=== PATIENT | female | born 1970 | race Caucasian/White ===

== ENCOUNTER 2019-11-02 12:33 | Outpatient (CLI) | payer OTHER, SELFPAY ==
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
== END 2019-11-02 12:34 | disposition home or self-care (01) ==
LOC: ANHIMG 12:41
PROVIDERS: PCP Physician Assistant Medical; Visit Provider Nurse Practitioner Family
DX: M54.5 Low back pain (principal); M54.2 Cervicalgia; R42 Dizziness and giddiness; R51 Headache; V89.2XXS Person injured in unspecified motor-vehicle accident, traffic, sequela; M12.88 Other specific arthropathies, not elsewhere classified, other specified site
CPT/HCPCS: 70450; 72040; 72100

== ENCOUNTER 2019-12-14 13:23 | Outpatient (CLI) | payer OTHER, SELFPAY ==
--- NOTE | ~2019-12-14 | CT_ITS ---
EXAMINATION: CT chest wo con DATE: 12/14/2019 13:41 INDICATION: Solitary pulmonary nodule TECHNIQUE: Computed tomography (CT) of the chest was performed without intravenous contrast. The dose -length product (DLP) was 55.53 mGy-cm. Automated exposure control and iterative reconstruction techn ique were employed. COMPARISON: 11/30/2018 FINDINGS: A stable nodule of the minor fissure likely reflects a fissural lymph node. No suspicious p ulmonary nodule is identified. The lungs are free of acute opacities. There is no pleural effusion or pneumothorax. No pathologically enlarged thoracic lymph nodes are identified. The heart size is norm al. Right thyroid calcification is unchanged. The gallbladder is surgically absent. A T8 superior end plate compression fracture with 1/5 loss of vertebral body height is new since the comparison examina tion. IMPRESSION: 1. No suspicious pulmonary nodules. 2. T8 compression fracture, new since the comparison CT. Reviewed, dictated and finalized at location A.
== END 2019-12-14 13:24 ==
PROVIDERS: Visit Provider Internal Medicine Critical Care Medicine
DX: R91.1 Solitary pulmonary nodule (principal); M48.54XA Collapsed vertebra, not elsewhere classified, thoracic region, initial encounter for fracture
CPT/HCPCS: 71250

== ENCOUNTER 2020-01-31 08:49 | Outpatient (CLI) | payer OTHER, SELFPAY ==
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
[2020-01-31 10:57] LABS: Estimated Glomerular Filt Rate > 60
== END 2020-01-31 08:50 | disposition home or self-care (01) ==
PROVIDERS: PCP Family Medicine; Visit Provider Physician Assistant Medical
DX: G44.309 Post-traumatic headache, unspecified, not intractable (principal)
CPT/HCPCS: 36415; 70553; A9577

== ENCOUNTER 2020-05-07 08:21 | Outpatient (CLI) | payer OTHER, SELFPAY ==
--- NOTE | ~2020-05-07 | MM_ITS ---
EXAMINATION: MM screening coreen BI w lizabeth HISTORY: Screening TECHNIQUE: Craniocaudal and mediolateral oblique 3-D tomosynthesis images were obtained and synthetic 2-D images were generated. CAD analysis was submitted and interpreted. COMPARISON: Comparison to multiple prior studies sequentially, with oldest reviewed study dated 08/28. BREAST PARENCHYMAL COMPOSITION: There are scattered areas of fibroglandular density. FINDINGS: There is no evidence of suspicious mass, calcification, or architectural distortion to sugg est malignancy in either breast. There has been no suspicious interval change. IMPRESSION: 1. No mammographic evidence of malignancy. 2. Recommend routine screening mammography in one year. BI-RADS Category 1: Negative Reviewed, dictated and finalized at location A.
== END 2020-05-07 08:22 | disposition home or self-care (01) ==
LOC: ANHIMG 08:22
PROVIDERS: PCP Family Medicine; Visit Provider Nurse Practitioner
DX: Z12.31 Encounter for screening mammogram for malignant neoplasm of breast (principal)
CPT/HCPCS: 77063; 77067

== ENCOUNTER → 2020-06-11 14:01 | Outpatient (CLI) | payer OTHER, SELFPAY ==
--- NOTE | ~2020-06-11 | US_ITS ---
EXAMINATION: US transvaginal DATE: 06/11/2020 14:38 INDICATION: Right lower quadrant pain. Fibroids. Comparison:Ultrasound dated 11/04/2017 TECHNIQUE: Multiple endovaginal sonographic images of the pelvis performed. FINDINGS: The uterus measures 7.8 x 5.2 x 5.1 cm. There are multiple uterine fibroids, largest on the left measuring 3.8 x 3.2 x 2.2 cm and at the fundus measuring 3.83 x 3 x 3 cm. The endometrial compl ex measures 5.5 mm. The right ovary is not visualized. The left ovary measures 1.7 x 0.8 x 1.1 cm There is no free fluid in the pelvis. There are no abnormal masses seen on either side. IMPRESSION: 1. Thickened endomtrial complex. The differential diagnosis includes endometrial hyperplasia, polyp a nd carcinoma. Biopsy is recommended. 2: Multiple uterine fibroids. Reviewed, dictated and finalized at location B. IMPRESSION: 1. Thickened endomtrial complex. The differential diagnosis includes endometria l hyperplasia, polyp and carcinoma. Biopsy is recommended. 2: Multiple uterine fibroids.
== END ==
PROVIDERS: PCP Physician Assistant Medical; Visit Provider Obstetrics & Gynecology Gynecology
DX: D25.9 Leiomyoma of uterus, unspecified (principal)
CPT/HCPCS: 76830

== ENCOUNTER 2020-06-28 01:12 | Outpatient (CLI) | payer OTHER, SELFPAY ==
[2020-06-28 16:30] LABS: SARS-CoV-2 RNA PCR Negative
== END 2020-06-28 01:13 | disposition home or self-care (01) ==
LOC: ANHCOVIDDT 01:12
PROVIDERS: PCP Physician Assistant Medical; Visit Provider Obstetrics & Gynecology Gynecology
DX: Z01.812 Encounter for preprocedural laboratory examination (principal); Z20.828 Contact with and (suspected) exposure to other viral communicable diseases
CPT/HCPCS: 87635; C9803; U0003

== ENCOUNTER 2020-07-01 02:39 | Day surgery (SDC) | payer OTHER, SELFPAY ==
[2020-06-19 09:15] VITALS: BMI 25.0
--- NOTE | 2020-07-01 07:36 | PM.HPGS ---
History of Present Illness History of Present Illness Consent: Risks, benefits, and alternatives have been discussed and questions answered. Patient agrees to proceed with procedure. Chief complaint: Thickened Endometrium Narrative: Rosalia Mckeon is a 50 year old female who had pelvic u/s for RLQ pain. Patient with menopause 2017. Pelvic u/s showed thickened endometrium. Patient denies bleeding. She is getting bioidential pellets and was told to stop her progesterone cream for a week and did not have bleeding after that either. Pain persisted as well. U/s did show multiple known fibroids with largest being 3.5 cm. Recommend to further evaluate with hysteroscopy and D&C. Risks of infection, bleeding, perforation, and possible pathology reviewed. Discussed that if fibroids are in cavity, would not plan to remove them unless it blocks the view of the remaining endometrium. Patient questions answered and she agrees to proceed. [facility] Past Medical History Medical History (Updated 07/01/20 @ 07:46 by Shama Petersen MD) Anxiety Asthma-COPD overlap syndrome Depression History of hysteroscopy 2010 Hypothyroid Nodule of right lung (normal spontaneous vaginal delivery) stillborn at 36 weeks Raynaud disease Sinusitis Sjogrens syndrome Skin cancer age 6 required several plastic surgeries Spontaneous x 2 D&C x 1 Surgical History Surgical History (Updated 07/01/20 @ 07:44 by Shama Petersen MD) S/P breast biopsy S/P laparoscopic cholecystectomy Social History Social History Smoking status: Never smoker Alcohol intake: current Drinks per week: 1 Spiritual care concerns: No Meds Home Medications and Allergies Home Medications Medication Instructions Recorded Confirmed Type hydroxychloroquine 200 mg tablet 200 mg PO BID 11/30/19 06/19/20 History ipratropium bromide 0.02 % 2.5 ml INHALATION Q6H PRN 30 Days 11/30/19 06/19/20 Rx solution for inhalation #150 ml thyroid (pork) 15 mg tablet 9.5 mg PO BID tablet 11/30/19 06/19/20 History topiramate 25 mg tablet 25 mg PO BID 11/30/19 06/19/20 History cevimeline 30 mg capsule 1 cap PO TID 01/17/20 06/19/20 History liothyronine 25 mcg tablet 12.5 mcg PO BID tablet 01/17/20 06/19/20 History cetirizine 10 mg tablet 10 mg PO DAILY #30 tablet 02/15/20 06/19/20 Rx fluticasone propionate 50 1 spray NASAL DAILY #18.2 ml 03/12/20 06/19/20 Rx mcg/actuation nasal spray,suspension montelukast 10 mg tablet 10 mg PO DAILY #90 tablet 03/25/20 06/19/20 Rx dextroamphetamine-amphetamine ER 10 mg PO DAILY #30 cap 06/11/20 06/19/20 Rx 10 mg 24hr capsule,extend release meloxicam 15 mg tablet 15 mg PO DAILY #30 tablet 06/11/20 06/19/20 Rx albuterol sulfate 90 mcg/actuation 1 inhalation INHALATION Q4-6H PRN 06/13/20 06/19/20 Rx aerosol inhaler #8.5 gm fluticasone furoate 200 1 inhalation INHALATION DAILY #60 06/13/20 06/19/20 Rx mcg-vilanterol 25 mcg/dose each inhalation powder azelastine 137 mcg NASAL DAILY 06/19/20 06/19/20 History ergocalciferol (vitamin D2) 1,250 mcg PO WEEKLY 06/19/20 06/19/20 History [Vitamin D2] omega 8-zsx-ofl-fish oil [Fish Oil] 1 cap PO DAILY 06/19/20 06/19/20 History turmeric 1 cap PO DAILY 06/19/20 06/19/20 History Allergies Allergy/AdvReac Type Severity Reaction Status Date / Time Sulfa (Sulfonamide Allergy Unknown SEVERE Verified 06/19/20 09:16 Antibiotics) HIVES azithromycin AdvReac Unknown SEVERE Verified 06/19/20 09:16 DIARRHEA gluten AdvReac FOLLOWS Verified 06/19/20 09:41 [facility] PROTOCOL lactase [From Dairy Aid] AdvReac FOLLOWS Verified 06/19/20 09:41 [facility] PROTOCOL Exam Const: General: no acute distress Resp: Auscultation: clear to auscultation bilaterally Cardio: Rate: regular rate Rhythm: regular rhythm GI: GI Palp: Yes Soft to palpation and No Tenderness to palpation present (GI) : Speculum Exam - Vagina:
--- NOTE | 2020-07-01 07:48 | WPDHPUPDATE1 ---
History and Physical Update Update Date/Time: 07/01/20 07:48 History and Physical has been reviewed, including an updated exam of the patient. There are NO changes in the patient's condition. Risks, benefits, and alternatives have been discussed and questions answered. Patient agrees to proceed with procedure.
[2020-07-01 07:58] VITALS: BP 111/51; PULSE 89; RESP 20; TEMP 37.4; O2SAT 100
[2020-07-01] MEDS: ACETAMINOPHEN 500 MG TABLET 1000 MG PO ×2 (08:04→08:10)
[2020-07-01] MEDS: LACTATED RINGERS 1,000 ML 30 ML IV CONT (08:20)
--- NOTE | 2020-07-01 08:42 | WPDANESEPPF ---
Anes - Initial Pre Proc Eval Procedure: Operation Date: 07/01/20 09:15 Proposed Procedures p Hysteroscopy Dilation and Curettage - Shama Petersen MD Date/Time: 07/01/20 08:42 Surgeon: Shama Petersen MD Pre Op Diagnosis: Thickened Endometrium Patient Data Age: 50 Gender: F Height: 1.7 m Weight: 72.57 kg Allergies Allergy/AdvReac Type Severity Reaction Status Date / Time Sulfa (Sulfonamide Allergy Severe SEVERE Verified 07/01/20 08:19 Antibiotics) HIVES azithromycin AdvReac Severe SEVERE Verified 07/01/20 08:19 DIARRHEA gluten AdvReac Unknown FOLLOWS Verified 07/01/20 08:19 AIP PROTOCOL lactase [From Dairy Aid] AdvReac Unknown FOLLOWS Verified 07/01/20 08:19 AIP PROTOCOL Home Medications Medication Instructions Recorded Confirmed Type hydroxychloroquine 200 mg tablet 200 mg PO BID 11/30/19 06/19/20 History ipratropium bromide 0.02 % 2.5 ml INHALATION Q6H PRN 30 Days 11/30/19 06/19/20 Rx solution for inhalation #150 ml thyroid (pork) 15 mg tablet 9.5 mg PO BID tablet 11/30/19 06/19/20 History topiramate 25 mg tablet 25 mg PO BID 11/30/19 06/19/20 History cevimeline 30 mg capsule 1 cap PO TID 01/17/20 06/19/20 History liothyronine 25 mcg tablet 12.5 mcg PO BID tablet 01/17/20 06/19/20 History cetirizine 10 mg tablet 10 mg PO DAILY #30 tablet 02/15/20 06/19/20 Rx fluticasone propionate 50 1 spray NASAL DAILY #18.2 ml 03/12/20 06/19/20 Rx mcg/actuation nasal spray,suspension montelukast 10 mg tablet 10 mg PO DAILY #90 tablet 03/25/20 06/19/20 Rx dextroamphetamine-amphetamine ER 10 mg PO DAILY #30 cap 06/11/20 06/19/20 Rx 10 mg 24hr capsule,extend release meloxicam 15 mg tablet 15 mg PO DAILY #30 tablet 06/11/20 06/19/20 Rx albuterol sulfate 90 mcg/actuation 1 inhalation INHALATION Q4-6H PRN 06/13/20 06/19/20 Rx aerosol inhaler #8.5 gm fluticasone furoate 200 1 inhalation INHALATION DAILY #60 06/13/20 06/19/20 Rx mcg-vilanterol 25 mcg/dose each inhalation powder azelastine 137 mcg NASAL DAILY 06/19/20 06/19/20 History ergocalciferol (vitamin D2) 1,250 mcg PO WEEKLY 06/19/20 06/19/20 History [Vitamin D2] omega 3-ugh-vjt-fish oil [Fish Oil] 1 cap PO DAILY 06/19/20 06/19/20 History turmeric 1 cap PO DAILY 06/19/20 06/19/20 History Patient hx anesthesia problems: none Family hx anesthesia problems: none PMFSH Past Medical History Medical History (Updated 07/01/20 @ 07:54 by Mulugeta Babcock DO) Anxiety Asthma-COPD overlap syndrome Depression Fibromyalgia History of hysteroscopy 2010 Hypothyroid Lupus Nodule of right lung (normal spontaneous vaginal delivery) stillborn at 36 weeks JULIANNE (obstructive sleep apnea) CPAP Raynaud disease Sinusitis Sjogrens syndrome Skin cancer age 6 required several plastic surgeries Spontaneous x 2 D&C x 1 Trigeminal neuralgia Surgical History Surgical History (Updated 07/01/20 @ 07:44 by Shama Petersen MD) S/P breast biopsy S/P laparoscopic cholecystectomy Social History Social History Smoking status: Never smoker Alcohol intake: current Drinks per week: 1 Spiritual care concerns: No Anes - Eval Final PreProcedure Day of Procedure 07/01/20 08:42 Patient weight: overweight Heart: regular rate and rhythm Lungs: clear to auscultation and normal air movement Airway: Mallampati scale class II Neurological: alert and oriented Last oral intake: >/= 8 hours ASA classification: III Emergent: no Anesthetic plan: proceed Anesthesia type and monitoring: general GIVS and standard monitoring Informed Consent: The patient's anesthetic plan and its attendant risks and benefits were discussed with the patient/family/POA. Questions were solicited and answers provided to the satisfaction of the patient/family/POA.
--- NOTE | 2020-07-01 09:41 | PM.PROC ---
Procedure Note - Detailed Date of procedure: 07/01/20 Pre-op diagnosis: Thickened Endometrium Post-op diagnosis: same Procedure performed: hysteroscopy, D&C, myosure resection of polyp Description of procedure: the patient was taken to the operating room and placed under anesthesia in the dorsal lithotomy position. She is prepped and draped in the usual sterile fashion. A bivalve speculum was placed in the vagina and the cervix grasped on the anterior lip with a tenaculum. The cervix is injected with 1% lidocaine, the uterus is sounded to 8cm, and the cervix is serially dilated with Hegars. The diagnostic hysteroscope is placed. A polyp is noted on the anterior lower wall and the remainder of the endometrium appears grossly atrophic. The MyoSure device is opened and placed and the polyp removed under direct visualization. The MyoSure device is removed and a medium sharp curette is used to sharply curette the endometrium until a good uterine cry was noted in all areas. Minimal material is obtained consistent with the atrophic appearance all instruments are removed. Patient is awakened from anesthesia and taken to recovery in stable condition. Sponge instrument needle counts are correct per the OR staff. Anesthesia: MAC and local Surgeon: Shama Petersen MD Estimated blood loss (mL): 5 Drains: No Packing: No Pathology: yes (endometrial curettings and shavings) Complications: No immediate complications Condition: stable Disposition: PACU Findings: uterus 8 cm; polyp noted lower anterior wall; grossly atrophic
--- NOTE | 2020-07-01 09:41 | SUR.OPER ---
600ml ns in, 550ml ns out. aware
[2020-07-01 09:47] VITALS: BP 123/67; PULSE 85; RESP 20; O2SAT 96
[2020-07-01] MEDS: KETOROLAC 15 MG/ML VIAL (*BKC) IV PUSH (09:57)
[2020-07-01 10:15] VITALS: BP 121/69; PULSE 83
[2020-07-01] MEDS: fentaNYL CITRATE INJ (*CRX) 100 MCG/2 ML VIAL 25 MCG IV PUSH ×2 (10:15→10:27)
[2020-07-01 10:45] VITALS: BP 126/60; PULSE 83
--- NOTE | 2020-07-01 10:51 | SUR.PHASEII ---
Patient is ready and just waiting for her ride to arrive.
== END 2020-07-01 10:58 | disposition home or self-care (01) ==
PROVIDERS: PCP Physician Assistant Medical; Visit Provider Obstetrics & Gynecology Gynecology
PROC: 0U5B8ZZ Destruction of Endometrium, Via Natural or Artificial Opening Endoscopic (ICD-10-PCS; CPT 58563; principal; 2020-07-01 09:15)
DX: N84.0 Polyp of corpus uteri (principal); E03.9 Hypothyroidism, unspecified; M35.00 Sjogren syndrome, unspecified; J45.909 Unspecified asthma, uncomplicated; F41.8 Other specified anxiety disorders; I73.00 Raynaud's syndrome without gangrene; G47.33 Obstructive sleep apnea (adult) (pediatric); M79.7 Fibromyalgia; M32.9 Systemic lupus erythematosus, unspecified; G50.0 Trigeminal neuralgia
CPT/HCPCS: 58558; 88305; A9270; J1100; J1885; J2250; J2405; J2704; J3010; J7120

== ENCOUNTER 2021-05-09 07:46 | Outpatient (CLI) | payer OTHER, SELFPAY ==
--- NOTE | ~2021-05-09 | MM_ITS ---
EXAMINATION: MM screening coreen BI w lizabeth HISTORY: Screening TECHNIQUE: Craniocaudal and mediolateral oblique 3-D tomosynthesis images were obtained and synthetic 2-D images were generated. CAD analysis was submitted and interpreted. COMPARISON: Comparison to multiple prior studies sequentially, with oldest reviewed study dated 12/2014. BREAST PARENCHYMAL COMPOSITION: The breasts are heterogeneously dense, which may obscure small masses . FINDINGS: There is no evidence of suspicious mass, calcification, or architectural distortion to sugg est malignancy in either breast. There has been no suspicious interval change. IMPRESSION: 1. No mammographic evidence of malignancy. 2. Recommend routine screening mammography in one year. BI-RADS Category 1: Negative Reviewed, dictated and finalized at location A.
== END 2021-05-09 07:47 | disposition home or self-care (01) ==
LOC: ANHIMG 07:49
PROVIDERS: PCP Family Medicine; Visit Provider Nurse Practitioner
DX: Z12.31 Encounter for screening mammogram for malignant neoplasm of breast (principal)
CPT/HCPCS: 77063; 77067

== ENCOUNTER → 2021-10-18 00:16 | Outpatient (CLI) | payer OTHER, SELFPAY ==
[2021-10-18 20:23] LABS: SARS-CoV-2 RNA PCR Negative
== END ==
PROVIDERS: PCP Family Medicine; Visit Provider Family Medicine
DX: R11.2 Nausea with vomiting, unspecified (principal); R50.9 Fever, unspecified; Z20.822 Contact with and (suspected) exposure to COVID-19
CPT/HCPCS: C9803; U0003; U0005

== ENCOUNTER 2022-06-29 08:05 | Outpatient (CLI) | payer OTHER, SELFPAY ==
--- NOTE | ~2022-06-29 | MM_ITS ---
EXAMINATION: MM screening [facility] BI w lizabeth HISTORY: Screening mammogram TECHNIQUE: Craniocaudal and mediolateral oblique 3-D tomosynthesis images were obtained and synthetic 2-D images were generated. CAD analysis was submitted and interpreted. COMPARISON: 05/09/2021, 1120, 02/02/2019 BREAST PARENCHYMAL COMPOSITION: There are scattered areas of fibroglandular density. FINDINGS: There is no suspicious mass, calcification, or architectural distortion to suggest malignan cy in either breast. There has been no suspicious interval change. IMPRESSION: 1. No mammographic evidence of malignancy. 2. Recommend routine screening mammography in one year. BI-RADS Category 1: Negative Reviewed, dictated and finalized at location A.
== END 2022-06-29 08:06 | disposition home or self-care (01) ==
LOC: ANHIMG 08:08
PROVIDERS: PCP Family Medicine; Visit Provider Obstetrics & Gynecology Gynecology
DX: Z12.31 Encounter for screening mammogram for malignant neoplasm of breast (principal)
CPT/HCPCS: 77063; 77067

== ENCOUNTER → 2022-11-19 14:00 | Outpatient (CLI) | payer OTHER, SELFPAY ==
--- NOTE | ~2022-11-19 | DEXA_ITS ---
Bone Density Report Name: KAYA BLEVINS Age: 52 Sex: Female Ethnicity: White Date of : 1970 Indication: postmenopausal; screening for osteoporosis; height loss; asthma or emphysema; Referring Provider: JEAN, EAMON Study: Bone densitometry was performed. Exam Date: November 19, 2022 Accession number: [id number] Bone Density: Region BMD T-score Z-score Classification AP Spine (L1-L4) 1.058 0.1 0.9 Normal Femoral Neck (Left) 0.917 0.6 1.4 Normal Total Hip (Left) 1.004 0.5 1.0 Normal Femoral Neck (Right) 0.954 0.9 1.7 Normal Total Hip (Right) 1.047 0.9 1.3 Normal Total Hip Mean 1.026 0.7 1.2 Normal World Health Organization criteria for BMD impression classify patients as: Normal (T-score at or above -1.0), Osteopenia (T-score between -1.0 and -2.5), or Osteoporosis (T-score at or below -2.5). 10-year Fracture Risk: FRAX not reported because: All T-scores for Spine Total, Hip Total, Femoral Neck at or above -1.0 Clinical Information Provided by Patient: Has used the following medications: HRT (i.e. estrogen/hormone therapy), Vitamin D Has the following medical conditions: Asthma or Emphysema, lupus, sjogrens, raynauds, hasimotos Patient maximum height was 66.5 Menopause Age: 48 No regular weight bearing exercise Drinks caffeinated beverages Onset of menses at age 11.5 Number of children 1 Impression: The patient has normal bone mass. Discussion: BONE DENSITY IS ABOVE THE MINIMUM DESIRABLE LEVEL AT ALL SKELETAL SITES TESTED. This patient?s bone mineral density is above the minimum desirable level (T-score -1.0 or better) at all sites measured. The patient should follow a healthful lifestyle (good nutrition with adequate calcium and vitamin D, and appropriate weight-bearing exercise). Follow-Up: Consider repeating this study in 5 years or sooner if there is some new clinical indication. Reported by: JUSTINO on 11/19/2022 2:23:00 PM. Reviewed, dictated and finalized at location ATracy MACIEL
== END ==
PROVIDERS: PCP Physician Assistant Medical; Visit Provider Nurse Practitioner
DX: Z78.0 Asymptomatic menopausal state (principal)
CPT/HCPCS: 77080

== ENCOUNTER 2023-10-14 14:42 | Outpatient (CLI) | payer OTHER, SELFPAY ==
--- NOTE | ~2023-10-14 | CT_ITS ---
EXAMINATION: CT sinus wo con DATE: 10/14/2023 15:07 INDICATION: Chronic sinusitis TECHNIQUE: Computed tomography (CT) of the paranasal sinuses was performed without contrast. Iterativ e reconstruction technique was employed. Exam dose: 325.47 mGy-cm total exam DLP. COMPARISON: November 04, 2011 CT sinuses FINDINGS: There is leftward bowing of nasal septum. Prominent soft tissue swelling of the nasal turbinates bilaterally, relatively symmetric. Intralamellar cell of right middle nasal turbinate. The ostiomeatal units are patent. The paranasal sinuses and mastoid air cells are normally developed and aerated. Middle and inner ear apparatus appear normal. IMPRESSION: Leftward bowing of nasal septum Prominent soft tissue swelling of the nasal turbinates Intralamellar cell of right middle nasal turbinate Patent ostiomeatal units, paranasal sinuses and mastoid air cells Reviewed, dictated and finalized at Location A. Reviewed, dictated and finalized at location L. OMER SECURITY CLERK
== END 2023-10-14 14:43 | disposition home or self-care (01) ==
PROVIDERS: PCP Physician Assistant Medical; Visit Provider Physician Assistant Medical
DX: J32.9 Chronic sinusitis, unspecified (principal); J34.2 Deviated nasal septum; J34.89 Other specified disorders of nose and nasal sinuses; R22.0 Localized swelling, mass and lump, head
CPT/HCPCS: 70486

== ENCOUNTER 2023-10-20 13:45 | Outpatient (CLI) | payer OTHER, SELFPAY ==
--- NOTE | ~2023-10-20 | MM_ITS ---
EXAMINATION: MM screening coreen BI w lizabeth HISTORY: Screening mammogram TECHNIQUE: Craniocaudal and mediolateral oblique 3-D tomosynthesis images were obtained and synthetic 2-D images were generated. CAD analysis was submitted and interpreted. COMPARISON: 06/29/2022, 05/09/2021, 1120 BREAST PARENCHYMAL COMPOSITION: There are scattered areas of fibroglandular density. FINDINGS: No suspicious mass, calcification, or architectural distortion are identified in either florencio ast to suggest malignancy. There has been no suspicious interval change. IMPRESSION: 1. No mammographic evidence of malignancy. 2. Recommend routine screening mammography in one year. BI-RADS Category 1: Negative Reviewed, dictated and finalized at location A. CHASER
== END 2023-10-20 13:46 | disposition home or self-care (01) ==
LOC: ANHIMG 13:48
PROVIDERS: PCP Family Medicine; Visit Provider Obstetrics & Gynecology Gynecology
DX: Z12.31 Encounter for screening mammogram for malignant neoplasm of breast (principal)
CPT/HCPCS: 77063; 77067

== ENCOUNTER → 2023-11-11 08:18 | Outpatient (CLI) | payer OTHER, SELFPAY ==
--- NOTE | ~2023-11-11 | US_ITS ---
Pelvic ultrasound. Clinical History: Leiomyoma Technique: Realtime transabdominal scanning of the pelvis was performed. Color flow Doppler and Doppl er spectral analysis were performed. Findings: The uterus is anteverted. The endometrial stripe has a thickness of 5 mm. Suspected right- sided fibroid measures 3.9 cm in maximum diameter. Intramural fibroid measures 6.1 x 5.9 x 6.6 cm. Po sterior fibroid measures 3.9 cm in maximum diameter. Neither ovary visualized. No other adnexal mass evident. There is no evidence of free fluid in the cul de sac. Impression: Uterine fibroids, as detailed above, largest measuring up to 6.6 cm. Reviewed, dictated and finalized at location M. PPER PRELIMINARY Impression: Uterine fibroids, as detailed above, largest measuring up to 6.6 cm.
== END ==
PROVIDERS: Visit Provider Nurse Practitioner
DX: D25.9 Leiomyoma of uterus, unspecified (principal)
CPT/HCPCS: 76856

== ENCOUNTER 2024-11-16 10:15 | Outpatient (CLI) | payer OTHER, SELFPAY ==
--- NOTE | ~2024-11-16 | MM_ITS ---
EXAMINATION: MM screening coreen BI w lizabeth HISTORY: Screening TECHNIQUE: Craniocaudal and mediolateral oblique 3-D tomosynthesis images were obtained and synthetic 2-D images were generated. CAD analysis was submitted and interpreted. COMPARISON: Comparison to multiple prior studies sequentially, with oldest reviewed study dated 10/2017. BREAST PARENCHYMAL COMPOSITION: Not dense: There are scattered areas of fibroglandular density. FINDINGS: There is no evidence of suspicious mass, calcification, or architectural distortion to sugg est malignancy in either breast. There has been no suspicious interval change. IMPRESSION: 1. No mammographic evidence of malignancy. 2. Recommend routine screening mammography in one year. BI-RADS Category 1: Negative Reviewed, dictated and finalized at location B. OR DIRECTOR OF [employer]
--- OUTSIDE RECORDS SUMMARY | 2024-11-16 10:33 | XMS_ITS | Encounter Summary ---
Author Organization [facility] Address 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
--- OUTSIDE RECORDS SUMMARY | 2024-11-16 10:33 | XMS_ITS | Clinical Summary ---
Author Organization [facility] Care Team Providers Care Senior Oracle Soa Developer Name Role Phone Unavailable Primary Care Provider Unavailabl e Social History Tobacco Use Types Packs/Day Years Used Date Smoking Tobacco: Never Assessed Comments Unknown Sex and Gender Information Value Date Recorded Sex Assigned at Not on file Legal Sex Female 2:15 PM INTERVENTION ANALYST Gender Identity Not on file Sexual Orientation Not on file Plan of Treatment Health Maintenance Due Date Last Done Comments Hepatitis C Virus (HCV) Screening 1972 TdaP Immunization 1972 Hepatitis B Immunization (1 of 3 - 19+ 3-dose series) 1991 Pap Smear 1993 Cervical Cancer Screening (CCS) 2002 HPV/Cotest 2002 Colonoscopy 2017 Colorectal Cancer Screening 2017 Cologuard 2022 Immunochemical Fecal Occult Blood 2022 Mammogram 2022 Pneumococcal Immunization (5 0+ years) (1 of 1 - PCV) 2022 Zoster Immunization (1 of 2) 2022 Influenza Immunization (#1) 2024 SARS-COV-2 Immunization ( season) 2024 Respiratory Syncytial Virus (RSV) Immunization (Adult) (1 - 1-dose 75+ series) 2047 Meningococcal Immunization (ACWY) Aged Out No longer eligible based on patient's age to complete this topic Pneumococcal Immunization Combined Aged Out No longer eligible based on patient's age to complete this topic Rotavirus Immunization Aged Out No lo nger eligible based on patient's age to complete this topic
--- OUTSIDE RECORDS SUMMARY | 2024-11-16 10:33 | XMS_ITS | Referral Summary ---
Author Organization [facility] [address] Address [address] [place] [phone] Phone Care Team Providers Care Lean Sensei Name Role Phone Mitch Fernando MD Unavailable Artemio Murdock MD Unavailable [phone] Artemio Murdock MD Primary Care Provider Encounters Date Type Department Care Team Description 08/17/2024 Orders Only [facility] Physicians [facility] Oncology [address] [place] [address] [address] [place] [address] Rosalia Diaz, CHELY 08/17/2024 Orders Only [facility] Oncology [address] [place] [address] [address] [place] [id number] Faustino Ngo DO 08/17/2024 12:30 PM OTR OWNER OPERATOR TRUCK DRIVER Lab [facility] at [address] [address] Elevated ferritin 08/17/2024 1:15 PM OTR OWNER OPERATOR TRUCK DRIVER Infusion [facility] [place] at [address] [place] [address] Elevated hematocrit (Primary Dx); Elevated ferritin from Last 3 Months Allergies Active Allergy Reactions Criticality Noted Date Comments Azithromycin Diarrhea Low 05/14/2022 Sulfa (Sulfonamide Antibiotics) Hives Medium 03/28 Medications thyroid (ARMSILVESTRE THYROID) 90 mg tablet Take 1 tablet (90 mg total) by mouth 2 (two) times a day 4 7 Active azelastine (ASTELIN) 137 mcg (0.1 %) nasal spray U 1 SPR IEN BID 3 7 Active azelastine (OPTIVAR) 0.05 % ophthalmic solutionIndications :Allergic Conjunctivitis 6 7 Active fluticasone (FLONASE) 50 mcg/actuation nasal spray SHAKE WELL AND U 1 SPR IEN BID 2 7 Active clonazePAM (KlonoPIN) 1 mg tablet nightly as needed 3 7 Active Xiidra 5 % dropperette 0.1 each (1 drop total) 2 (two) times a day 2 Active progesterone (PROMETRIUM) 200 mg capsule Take 1 capsule (200 mg total) by mouth nightly 2 Active cetirizine (ZyrTEC) 10 mg tablet Take 1 tablet (10 mg total) by mouth daily 2 Active montelukast (SINGULAIR) 10 mg tablet Take 1 tablet (10 mg total) by mouth daily 2 Active hydrOXYchloroQUINE (PLAQUENIL) 200 mg tablet Take by mouth 2 (two) times a day Active fluticasone furoate-vilanteroL (BREO ELLIPTA) 200-25 mcg/dose diskus inhaler Inhale 1 puff daily Rinse mouth with water after use. Do not swallow. Active liothyronine sodium (LIOTHYRONINE ORAL) Take 12.5 mg by mouth 2 (two) times a day Active albuterol HFA (PROVENTIL HFA,VENTOLIN HFA,PROAIR HFA) 90 mcg/actuation inhaler Inhale 1 puff as needed for wheezing Active escitalopram (LEXAPRO) 20 mg tablet Take 1 tablet (20 mg total) by mouth daily 2 Active cevimeline (EVOXAC) 30 mg capsule 2 Active Nurtec ODT tablet,disintegrati ng TAKE ONE TABLET BY MOUTH EVERY OTHER DAY. NO MORE THAN ONE DOSE IN 24 HRS 2 Active testosterone, bulk, powder 0 2 Active meloxicam (MOBIC) 15 mg tablet Take 1 tablet (15 mg total) by mouth daily 2 Active Active Problems Problem Noted Date Diagnosed Date Elevated ferritin 08/19/2022 Elevated hematocrit 08/19/2022 Encounter for adjustment and management of unspecified implanted device 08/19/2022 Sjogren's syndrome 07/01/2017 Overview (07/01/2017): Based on positive MENG 1:80 in speckled pattern with positive anti-SSB abs (1.8) with significant oral and ocular dryness. Is s/p lower punctal plugs which has helped ocular dryness. Has ongoing fatigue with polyarthralgias and was felt she may have systemic sjogren's. Has started HCQ and feels this has helped some with fatigue and polyarthralgias although not greatly. AVISE labs (04/23/17) reveal negative activity at -1.1, MENG 1:640 in specked pattern with no other autoantibodies including neg anti-SSB antibodies. Evoxac 30 mg tid started 07/01/17 Has Raynauds Has aunts with SLE and scleroderma. Assessment & Plan (10/07/2017 1:43 PM OTR OWNER OPERATOR TRUCK DRIVER): No significant change since last visit. Still with oral and ocular dryness. She was unable to abstain from eye drops for 12 hours as needed for the Betsy's test to be enrolled in the Sjogren's drug trial. Will cont HCQ 200 mg bid as this may have helped some with her fatigue. Cont symptomatic treatment of her sicca symptoms. Will repeat serology next visit. F/u 6 weeks. Assessment & Plan (08/26/2017 12:20 PM OTR OWNER OPERATOR TRUCK DRIVER): Based on positive MENG 1:80 in speckled pattern with positive anti-SSB abs (1.8) with significant oral and ocular dryness. Is s/p lower punctal plugs which has helped ocular dryness although still quite bothersome. On evoxac with mild benefit. Pt feels HCQ may have helped her fatigue some but not great. Will screen for for Sjogren's drug trial. Cont HCQ 200 mg bid for now although may DC in near future if no significant benefit. Cont evoxac 30 mg tid for dryness. F/u 6 weeks. Assessment & Plan (07/01/2017 3:26 PM CDT): Based on positive MENG 1:80 in speckled pattern with positive anti-SSB abs (1.8) with significant oral and ocular dryness. Is s/p lower punctal plugs which has helped ocular dryness. Still with significant oral dryness causing hoarse throat. Saw ENT who scoped her and found no abnormality. Has ongoing fatigue with polyarthralgias and was felt she may have systemic sjogren's. Has started HCQ and feels this has helped some with fatigue and polyarthralgias although not greatly. Has no serologic evidence of lupus. Recent AVISE labs reveal negative activity at -1.1, MENG 1:640 in specked pattern with no other autoantibodies including neg anti-SSB antibodies. Will cont HCQ 200 mg bid. Cont routine eye exams while on HCQ. Will start evoxac 30 mg tid prn to see if can help oral dryness and vocal hoarseness. F/u 2 months. Fibromyalgia 07/01/2017 Overview (10/07/2017): Based on generalized achiness, fatigue, cognitive dysfunction and mental fogginess. Has several trigger points on exam and generalized achy feeling described as flu like muscle aches. Cymbalta no benefit Previously on gabapentin which caused drowsiness, weight gain Lyrica helped some, caused lower ext edema Amitriptyline caused sleep hangover Savella started 10/07/17 Assessment & Plan (10/07/2017 1:43 PM OTR OWNER OPERATOR TRUCK DRIVER): Still with generalized pain, fatigue, poor sleep, mental fogginess, cognitive dysfunction. Has generalized tenderness on exam. Was unable to tolerate amitriptyline as prescribed last visit due to sleep hangover the next day. Previous on cymbalta with no benefit. Gabapentin and lyrica caused adverse effects. Will initiate savella starter pack and titrate up to 50 mg bid to see if can help symptoms. Pt is exercising and she was encouraged to continue to do so. Assessment & Plan (08/26/2017 12:25 PM OTR OWNER OPERATOR TRUCK DRIVER): Has generalized pain, fatigue, poor sleep, gognitive dysfunction and several nonspecific complaints along with widespread tenderness on exam. I suspect this is causing the majority of her complaints. Cymbalta has not offered any benefit. Will taper off cymbalta. Will initiate amitriptyline 10 mg qHS to see if can offer benefit. Pt encouraged to exercise. Assessment & Plan (07/01/2017 3:31 PM CDT): Based on generalized achiness, fatigue, cognitive dysfunction and mental fogginess. Has several trigger points on exam and generalized achy feeling described as flu like muscle aches. Will initiate cymbalta 30 mg daily for 2 weeks then increase to 60 mg daily to see if can help symptoms. Pt encouraged to cont exercise regimen. Arthralgia of hip 11/08/2014 Lumbago 02/06/2013 Resolved Problems Problem Noted Date Diagnosed Date Resolved Date Systemic lupus erythematosus ([facility]) 04/22/2017 07/01/2017 Overview (04/23/2017): Based on positive MENG 1:80 in speckled pattern with positive anti-SSB abs (1.8) with profound fatigue, brain fog, Raynauds. Throat feels tight at times as if food stuck. No other systemic complaints. Has aunts with SLE and scleroderma. Uncertain if truly Lupus vs Sjogrens vs overlap Fatigue improved with armour thyroid Assessment & Plan (04/23/2017 4:43 PM CDT): Uncertain if truly SLE or not. Has low positive MENG (1:80 titer in speckled pattern) with low positive anti-SSB ab (1.8). I am uncertain of significance of positive serology although lupus remains possible based on serology as well as Raynauds with nonspecific complaints of fatigue, mental fogginess as well as family history with her aunt with history of lupus. Nonetheless she does not have other clinical criteria consistent with SLE and remaining serology unremarkable. She does report ocular dryness and Sjogren's syndrome likely as well. Is noted she does not have any significant oral dryness although has difficulty swallowing with throat feeling tight at times. She may have an overlap with SLE/Sjogren's as well. Will obtain AVISE labs to further evaluate possible lupus. If disease activity is negative I would consider this Sjogren's. If disease activity is positive will initiate HCQ for SLE. Cont restasis bid for her ocular dryness as prescribed by ophth. Will discuss results with pt over phone. If we start HCQ will have her come back in 2 months. If AVISE neg will have he come back in 4 months for reevaluation. Positive MENG (antinuclear antibody) 04/15/2017 07/01/2017 Overview (04/15/2017): MENG positive per labs March 29. Was checked due to profound fatigue and brain fog which has worsened over last 8 months. Also with Raynauds. Has aunts with SLE and scleroderma. Throat feels tight, ?food stuck Assessment & Plan (04/15/2017 2:01 PM CDT): MENG positive per labs March 29. Was checked due to profound fatigue and brain fog which has worsened over last 8 months. Also with Raynauds. Has aunts with SLE and scleroderma. Other than Raynauds has no specific findings or systemic complaints for scleroderma or SLE although fatigue and poor cognition/mental fogginess can be seen. Is noted she does have some hoarseness and fullness in throat and describes a sensation as something being stuck in her throat which may be a manifestation of GI dysmotility. Will obtain labs as below. F/u 2 weeks. Fatigue 04/15/2017 07/01/2017 Assessment & Plan (04/15/2017 2:02 PM CDT): Has profound fatigue. Has improved with armour thyroid although still present. Also with some weight gain, fullness in throat/hoarseness. Will check for thyroid abnormality including autoimmune thyroiditis. Labs as below. Immunizations Immunization Administration Dates Next Due Influenza, Unspecified 07/04/2021 Social History Tobacco Use Types Packs/Day Years Used Date Smoking Tobacco: Never Smokeless Tobacco: Never Alcohol Use Standard Drinks/Week Comments Yes 0 (1 standard drink = 0.6 oz pur e alcohol) AUDIT-C Answer Date Recorded Q1: How often do you have a drink containing alc ohol? 2-3 times a week 05/14/2022 Q2: How many drinks containi ng alcohol do you have on a typical day when you are drinking? 1 or 2 05/14/2022 Q3: How often do you have si x or more drinks on one occasion? 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 Not on file N ot on file Last Filed Vital Signs Vital Sign Reading Time Taken Comments Blood Pressure 110/68 08/17/2024 1:42 PM OTR OWNER OPERATOR TRUCK DRIVER Pulse 85 08/17/2024 1:42 PM OTR OWNER OPERATOR TRUCK DRIVER Temperature 36.6 C (97.9 F) 08/17/2024 1:05 PM OTR OWNER OPERATOR TRUCK DRIVER Respiratory Rate 16 08/17/2024 1:42 PM OTR OWNER OPERATOR TRUCK DRIVER Oxygen Saturation 100% 08/17/2024 1:4 2 PM OTR OWNER OPERATOR TRUCK DRIVER Inhaled Oxygen Concentration - - Weight 85.1 kg (187 lb 9.6 oz) 08/17/20 1:05 PM OTR OWNER OPERATOR TRUCK DRIVER with shoes Height 165.1 cm (5' 5 ) 11/17/2023 2:16 PM OTR OWNER OPERATOR TRUCK DRIVER Body Mass Index 31.22 11/17/2023 2:16 PM OTR OWNER OPERATOR TRUCK DRIVER Plan of Treatment Not on file Procedures Procedure Name Priority Date/Time Associated Diagnosis Comments EGFR Routine 08/17/2024 12:51 PM OTR OWNER OPERATOR TRUCK DRIVER Elevated ferritin DIFFERENTIAL AUTO Routine 08/17/2024 12: 51 PM OTR OWNER OPERATOR TRUCK DRIVER Elevated ferritin CBC WITH AUTO DIFFERENTIAL Routine 08/17/2024 12:51 PM OTR OWNER OPERATOR TRUCK DRIVER Elevated ferritin COMPREHENSIVE METABOLIC PANEL Routine 08/17/2024 12:51 PM OTR OWNER OPERATOR TRUCK DRIVER Elevated ferritin FERRITIN Routine 08/17/2024 12:51 PM OTR OWNER OPERATOR TRUCK DRIVER Elevated ferritin IRON PROFILE W/ IBC Routine 08/17/2024 1 2:51 PM OTR OWNER OPERATOR TRUCK DRIVER Elevated ferritin from Last 3 Months Results * eGFR (08/17/2024 12:51 PM OTR OWNER OPERATOR TRUCK DRIVER) eGFR >90 >=60 mL/min/1. 73 m2 Comment: Interpretive Data Reference Interval Normal >/= 90 mL/min/1.73m2 Mildly decreased* 60 - 89 mL/min/1.73m2 Mildly to moderately decreased 45 - 59 mL/min/1.73m2 Moderately to severely decreased 30 - 44 mL/min/1.73m2 Severely decreased 15 - 29 mL/min/1.73m2 Kidney Failure < 15 mL/min/1.73m2 *Relative to young adult level Estimated glomerular filtration rate is determined by the 2020 CKD-EPI equation recommended by the National Kidney Foundation (A Unifying Approach to GFR Estimation: Recommendations of the NKF-ASK Task Force on Reassessing the Inclusion of Race in Diagnosing Kidney Disease, JASN 2020). The CKD-EPI equation should not be used for patients with unstable renal function and has not been validated in children and those over 70. Current interpretive data was last reviewed 2021. Testing performed by: [address] [address] Blood 08/17/2024 12:5 1 PM OTR OWNER OPERATOR TRUCK DRIVER 08/17/2024 12:53 PM OTR OWNER OPERATOR TRUCK DRIVER Rosalia Diaz NP LAB BLOOD ORDERABLES Final Result [facility] [address] [facility] Department [place] [address] * (ABNORMAL) Differential, auto (08/17/2024 12:51 PM OTR OWNER OPERATOR TRUCK DRIVER) Pathologist [facility] Neutrophil abs 8.1(H) 1.5 - 6.5 K/cumm Comment:Testing performed by : [address] [address] Imm gran abs 0.0 0.0 - 0.1 K/cumm [facility] Comment:Testing performed by : [address] [address] Lymphocyte abs 1.5 0.8 - 3.3 K/cumm [facility] Comment:Testing performed by : [address] [place]., [address] Monocyte abs 1.1(H) 0.2 - 0.8 K/cumm [facility] Comment:Testing performed by : [address] [address] Eosinophil abs 0.2 0.0 - 0.5 K/cumm [facility] Comment:Testing performed by : [address] [address] Basophil abs 0.1 0.0 - 0.1 K/cumm [facility] Comment:Testing performed by : [address] [address] Neutrophil pct 74.2 % [facility] Comment: Interpretive Data Percent cell count reference ranges are not reported, since discordance with absolute values may lead to misinterpretation of CBC data. Current Interpretive Data was last revised on 2018. Testing performed by: [address] [address] Imm gran pct 0.3 % [facility] Comment: Interpretive Data Percent cell count reference ranges are not reported, since discordance with absolute values may lead to misinterpretation of CBC data. Current Interpretive Data was last revised on 2018. Testing performed by: [address] [address] Lymphocyte pct 13.5 % [facility] Comment: Interpretive Data Percent cell count reference ranges are not reported, since discordance with absolute values may lead to misinterpretation of CBC data. Current Interpretive Data was last revised on 2018. Testing performed by: [address] [address] Monocyte pct 9.9 % [facility] Comment: Interpretive Data Percent cell count reference ranges are not reported, since discordance with absolute values may lead to misinterpretation of CBC data. Current Interpretive Data was last revised on 2018. Testing performed by: [address] [address] Eosinophil pct 1.6 % [facility] Comment: Interpretive Data Percent cell count reference ranges are not reported, since discordance with absolute values may lead to misinterpretation of CBC data. Current Interpretive Data was last revised on 2018. Testing performed by: [address] [address] Basophil pct 0.5 % [facility] Comment: Interpretive Data Percent cell count reference ranges are not reported, since discordance with absolute values may lead to misinterpretation of CBC data. Current Interpretive Data was last revised on 2018. Testing performed by: [address] [address] Blood 08/17/2024 12:5 1 PM OTR OWNER OPERATOR TRUCK DRIVER 08/17/2024 12:53 PM OTR OWNER OPERATOR TRUCK DRIVER Rosalia Diaz NP LAB BLOOD ORDERABLES Final Result Performing Organization Address City/[facility] Co de Phone Number [id number] [place] [address] * (ABNORMAL) Iron profile w/ IBC (08/17/2024 12:51 PM OTR OWNER OPERATOR TRUCK DRIVER) Iron 147(H) 35 - 145 mcg/dL Comment:Testing performed by : [address] [address] TIBC 260 250 - 400 mcg/dL [facility] Comment:Testing performed by : [address] [address] Transferrin saturation 57(H) 20 - 50 % [facility] Comment:Testing performed by : [address] [address] Blood 08/17/2024 12:5 1 PM OTR OWNER OPERATOR TRUCK DRIVER 08/17/2024 1:43 PM OTR OWNER OPERATOR TRUCK DRIVER Rosalia Diaz NP LAB BLOOD ORDERABLES Final Result Performing Organization Address [facility] Co de Phone Number [id number] [place] [address] * (ABNORMAL) CBC with auto differential (08/17/2024 12:51 PM OTR OWNER OPERATOR TRUCK DRIVER) WBC 11.0(H) 3.8 - 9.9 K/cumm Comment:Testing performed by : [address] [address] Hgb 14.4 11.9 - 15.5 g/dL [facility] Comment:Testing performed by : [address] [address] Hct 44.0 35.6 - 45.5 % [facility] Comment:Testing performed by : [address] [address] Plt 416(H) 150 - 400 K/cumm [facility] Comment:Testing performed by : [address] [address] MPV 10.1 9.1 - 12.3 fL [facility] Comment:Testing performed by : [address] [address] RBC 4.83 3.90 - 5.20 M/cumm [facility] Comment:Testing performed by : [address] [address] MCV 91.1 81.3 - 96.4 fL [facility] Comment:Testing performed by : [address] [address] MCH 29.8 27.1 - 33.3 pg [facility] Comment:Testing performed by : [address] [address] MCHC 32.7 32.3 - 35.7 g/dL [facility] Comment:Testing performed by : [address] [address] RDW CV 12.7 11.1 - 14.9 % [facility] Comment:Testing performed by : [address] [address] RDW SD 42.5 35.7 - 48.1 fL [facility] Comment:Testing performed by : [address] [address] NRBC abs 0.00 0.00 - 0.01 K/cumm [facility] Comment:Testing performed by : [address] [address] Blood 08/17/2024 12:5 1 PM OTR OWNER OPERATOR TRUCK DRIVER 08/17/2024 12:53 PM OTR OWNER OPERATOR TRUCK DRIVER Rosalia Diaz TIMBER CUTTER LAB BLOOD ORDERABLES Final Result Performing Organization Address City/[facility]/ZIP Co de Phone Number [facility] [place] [address] * Ferritin (08/17/2024 12:51 PM OTR OWNER OPERATOR TRUCK DRIVER) Ferritin 73 15 - 150 ng/mL Comment:Testing performed by : [address] [address] Blood 08/17/2024 12:5 1 PM OTR OWNER OPERATOR TRUCK DRIVER 08/17/2024 1:43 PM OTR OWNER OPERATOR TRUCK DRIVER Rosalia Diaz NP LAB BLOOD ORDERABLES Final Result Performing Organization Address [facility] de Phone Number [facility] [address] [address] * (ABNORMAL) Comprehensive metabolic panel (08/17/2024 12:51 PM OTR OWNER OPERATOR TRUCK DRIVER) Pathologist [facility] Sodium 137 135 - 145 mmol/L Comment:Testing performed by : [address] [address] Potassium, pl 4.7 3.3 - 4.9 mmol/L [facility] Comment:Testing performed by : [address] [address] Chloride 100 97 - 110 mmol/L [facility] Comment:Testing performed by : [address] [address] CO2 28 22 - 32 mmol/L [facility] Comment:Testing performed by : [address] [address] Anion gap 9 2 - 15 mmol/L [facility] Comment:Testing performed by : [address] [address] BUN 10 6 - 25 mg/dL [facility] Comment:Testing performed by : [address] [address] Creatinine 0.70 0.60 - 1.10 mg/dL [facility] Comment:Testing performed by : [address] [address] Glucose 96 70 - 199 mg/dL [facility] Comment: Interpretive Data Fasting glucose >/= 126 mg/dl is diagnostic for diabetes. Fasting is defined as no caloric intake for at least 8 hours. Fasting glucose between 100 mg/dl to 125 mg/dl is diagnostic of prediabetes. In a patient with classic symptoms of hyperglycemia or hyperglycemic crisis, a random glucose >/= 200 mg/dl is diagnostic for diabetes. In the absence of unequivocal hyperglycemia, results should be confirmed by repeat testing. The classification and Diagnosis of Diabetes Diabetes Care 2021; 46: S19-S40. Current interpretive data was last revised 2022. Testing performed by: [address] [address] Calcium 8.4(L) 8.5 - 10.3 mg/dL [facility] Comment:Testing performed by : [address] [address] Bilirubin, total 0.5 0.1 - 1.2 mg/dL [facility] Comment:Testing performed by : [address] [address] Protein, pl 6.6 6.5 - 8.5 g/dL [facility] Comment:Testing performed by : [address] [address] Albumin 3.9 3.5 - 5.0 g/dL [facility] Comment:Testing performed by : [address] [address] Alk phos 54 40 - 130 Units/L [facility] Comment:Testing performed by : [address] [address] ALT 14 7 - 45 Units/L [facility] Comment:Testing performed by : [address] [address] AST 20 10 - 45 Units/L [facility] Comment:Testing performed by : [address] [address] Blood 08/17/2024 12:5 1 PM OTR OWNER OPERATOR TRUCK DRIVER 08/17/2024 12:53 PM OTR OWNER OPERATOR TRUCK DRIVER Rosalia Diaz NP LAB BLOOD ORDERABLES Final Result [facility] [address] [facility] [place] [address] from Last 3 Months Insurance [facility] Care Teams Lean Sensei Relationship Specialty Start Date End Date Artemio Murdock MD [address] [place], [place] [id number] PCP - General Family Medicine 05/14/22 Mitch Fernando MD [address] [place], [place] [id number] Rheumatology 08/26/17 Artemio Murdock MD [address] [facility] [address] [place] [address] Referring Physician Family Medicine 04/14/22
--- OUTSIDE RECORDS SUMMARY | 2024-11-16 10:33 | XMS_ITS | Encounter Summary ---
Author Organization [employer] Address [address] [place] [address] Care Team Providers Care Brands Editor Name Role Phone Doug Ojeda DO Primary Care Provider Unav ailable Encounter Details Date Type Department Care Team (Latest Contact Info) Description 10/19/2000 [facility]patient [facility] Bharath Albert MD [address] [facility] [address] [place] [phone] Supervision of other normal (Primary Dx) Social History Tobacco Use Types Packs/Day Years Used Date Smoking Tobacco: Never Assessed Comments Unknown Sex and Gender Information Value Date Recorded Sex Assigned at Not on file Legal Sex Female 5:27 AM WEIGHER AND GRADER Gender Identity Not on file Sexual Orientation Not on file documented as of this encounter Plan of Treatment Not on file documented as of this encounter Visit Diagnoses Diagnosis Supervision of other normal - Primary documented in this encounter Care Teams Brands Editor Relationship Specialty Start Date End Date Doug Ojeda DO NO ADDRESS ON FILE PCP - General 01/24/01 documented as of this encounter
--- OUTSIDE RECORDS SUMMARY | 2024-11-16 10:33 | XMS_ITS | Encounter Summary ---
Author Organization [facility] Address 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
--- OUTSIDE RECORDS SUMMARY | 2024-11-16 10:33 | XMS_ITS | Encounter Summary ---
Author Organization [employer] Address 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
--- OUTSIDE RECORDS SUMMARY | 2024-11-16 10:33 | XMS_ITS | Encounter Summary ---
Author Organization [employer] Address [address] [place] [address] Care Team Providers Care Eyewear Manufacturing Supervisor Name Role Phone Doug Ojeda DO Primary Care Provider Unav ailable Encounter Details Date Type Department Care Team (Latest Contact Info) Description 02/28/2000 Outpatient Historical [facility] Bharath Albert MD [address] [facility] [address] [place] [phone] Unspecified antepartum hemorrhage, unspecified as to episode of care(641.90) (Primary Dx) Social History Tobacco Use Types Packs/Day Years Used Date Smoking Tobacco: Never Assessed Comments Unknown Sex and Gender Information Value Date Recorded Sex Assigned at Not on file 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
--- OUTSIDE RECORDS SUMMARY | 2024-11-16 10:33 | XMS_ITS | Encounter Summary ---
Author Organization [employer] Address 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
--- OUTSIDE RECORDS SUMMARY | 2024-11-16 10:33 | XMS_ITS | Encounter Summary ---
Author Organization [employer] Address 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
--- OUTSIDE RECORDS SUMMARY | 2024-11-16 10:33 | XMS_ITS | Encounter Summary ---
Author Organization [facility] Address 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
--- OUTSIDE RECORDS SUMMARY | 2024-11-16 10:33 | XMS_ITS | Encounter Summary ---
Author Organization [facility] Address 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
--- OUTSIDE RECORDS SUMMARY | 2024-11-16 10:33 | XMS_ITS | Encounter Summary ---
Author Organization [facility] Address 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
--- OUTSIDE RECORDS SUMMARY | 2024-11-16 10:33 | XMS_ITS | Encounter Summary ---
Author Organization [facility] Address 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
--- OUTSIDE RECORDS SUMMARY | 2024-11-16 10:33 | XMS_ITS | Encounter Summary ---
Author Organization [employer] Address [address] [place] [address] Care Team Providers Care Pull Tab Dealer Name Role Phone Doug Ojeda DO Primary Care Provider Unav ailable Encounter Details Date Type Department Care Team (Latest Contact Info) Description 01/27/2000 Outpatient Historical [facility] Bharath Albert MD [address] [facility] [address] [place] [phone] Unspecified antepartum hemorrhage, unspecified as to episode of care(641.90) (Primary Dx) Social History Tobacco Use Types Packs/Day Years Used Date Smoking Tobacco: Never Assessed Comments Unknown Sex and Gender Information Value Date Recorded Sex Assigned at Not on file 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
--- OUTSIDE RECORDS SUMMARY | 2024-11-16 10:33 | XMS_ITS | Encounter Summary ---
Author Organization [employer] Address 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
--- OUTSIDE RECORDS SUMMARY | 2024-11-16 10:33 | XMS_ITS | Encounter Summary ---
Author Organization [facility] Address 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
--- OUTSIDE RECORDS SUMMARY | 2024-11-16 10:33 | XMS_ITS | Clinical Summary ---
Author Organization [facility] [address] Address [address] [place] [address] Phone Care Team Providers Care Fiber Design Engineer Name Role Phone Mitch Fernando MD Unavailable [phone] Artemio Murdock MD Unavailable [phone] Artemio Murdock MD Primary Care Provider Allergies Active Allergy Reactions Criticality Noted Date Comments Azithromycin Diarrhea Low 05/14/2022 Sulfa (Sulfonamide Antibiotics) Hives Medium 03/28 Medications thyroid (ARMOUR THYROID) 90 mg tablet Take 1 tablet [...] scleroderma. Assessment & Plan (10/07/2017 1:43 PM DAY HABILITATION SUPERVISOR): No significant change since last visit. Still [...] weeks. Assessment & Plan (08/26/2017 12:20 PM DAY HABILITATION SUPERVISOR): Based on positive MENG 1:80 in speckled [...] 10/07/17 Assessment & Plan (10/07/2017 1:43 PM DAY HABILITATION SUPERVISOR): Still with generalized pain, fatigue, poor sleep, [...] so. Assessment & Plan (08/26/2017 12:25 PM DAY HABILITATION SUPERVISOR): Has generalized pain, fatigue, poor sleep, gognitive [...] Diagnosed Date Resolved Date Systemic lupus erythematosus ([facility]) 04/22/2017 07/01/2017 Overview (04/23/2017): Based on positive [...] abnormality including autoimmune thyroiditis. Labs as below. Encounters Date Type Department Care Team Description 08/17/2024 1:15 PM DAY HABILITATION SUPERVISOR Infusion [facility] at [address] [address] Elevated hematocrit (Primary Dx); Elevated ferritin 08/17/2024 12:30 PM DAY HABILITATION SUPERVISOR Lab [facility] [place] at [address] [address] Elevated ferritin 08/17/2024 Orders Only [facility] Oncology [address] [place] [address] [address] [place] [address] Rosalia Diaz, CHELY 08/17/2024 Orders Only [facility] Oncology [address] [place] [address] [address] [place] [address] Faustino Ngo, from Last 3 Months Immunizations Immunization Administration Dates Next Due Influenza, Unspecified 07/04/2021 Surgical History Surgery Date Site/Laterality Comments BREAST BIOPSY 09/27/1996 - 09/26/1997 Left CHOLECYSTECTOMY 09/27/1997 - 09/26/1998 Medical History Medical History Date Comments Lupus Sjogren's syndrome (HCC) Thyroid disease Asthma Bronchitis Fibromyalgia Degenerative disc disease, lumbar Intractable migraine without aura Family History Medical History Relation Name Comments Leukemia Half-Brother 2 CLL Spina bifida Half-Sister No Known Problems Mother Breast cancer Other Colon cancer Paternal Grandfather Relation Name Status Comments Father Alive Half-Brother 1 Alive Half-Brother 2 Alive Half-Sister Alive Mother Other Paternal Grandfather Social History Tobacco Use Types Packs/Day Years [...] on file Legal Sex Female 2:21 AM DAY HABILITATION SUPERVISOR Gender Identity Not on file Sexual Orientation Not on file 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 Not on file N ot on file Obstetrics History Last Filed Vital Signs Vital Sign Reading Time Taken Comments Blood Pressure 110/68 08/17/2024 1:42 PM DAY HABILITATION SUPERVISOR Pulse 85 08/17/2024 1:42 PM DAY HABILITATION SUPERVISOR Temperature 36.6 C (97.9 F) 08/17/2024 1:05 PM DAY HABILITATION SUPERVISOR Respiratory Rate 16 08/17/2024 1:42 PM DAY HABILITATION SUPERVISOR Oxygen Saturation 100% 08/17/2024 1:4 2 PM DAY HABILITATION SUPERVISOR Inhaled Oxygen Concentration - - Weight 85.1 kg (187 lb 9.6 oz) 08/17/20 24 1:05 PM DAY HABILITATION SUPERVISOR with shoes Height 165.1 cm (5' 5 ) 11/17/2023 2:16 PM DAY HABILITATION SUPERVISOR Body Mass Index 31.22 11/17/2023 2:16 PM DAY HABILITATION SUPERVISOR Plan of Treatment Health Maintenance Due Date Last Done Comments Breast Cancer Screening-Mammogram 1972 Cervical Cancer Screening 1972 Colon Cancer Screening-Colonoscopy 1972 Depression Screening 1972 Hepatitis C Screening 1972 DTaP/Tdap/Td Vaccine (1 - Tdap) 1983 Hepatitis B Screening 1990 Regular Well Visit/Exam 18-64 1990 Pneumococcal vaccine <65 (1 of 2 - PCV) 1991 Zoster Vaccine (1 of 2) 1991 Covid-19 Vaccine (4 - season) 2024 05/30/2021, 12/07/2020, 11/09/2020 Influenza Vaccine (#1) 2024 07/04/2021 Procedures Procedure Name Priority Date/Time Associated Diagnosis Comments EGFR Routine 08/17/2024 12:51 PM DAY HABILITATION SUPERVISOR Elevated ferritin DIFFERENTIAL AUTO Routine 08/17/2024 12: 51 PM DAY HABILITATION SUPERVISOR Elevated ferritin CBC WITH AUTO DIFFERENTIAL Routine 08/17/2024 12:51 PM DAY HABILITATION SUPERVISOR Elevated ferritin COMPREHENSIVE METABOLIC PANEL Routine 08/17/2024 12:51 PM DAY HABILITATION SUPERVISOR Elevated ferritin FERRITIN Routine 08/17/2024 12:51 PM DAY HABILITATION SUPERVISOR Elevated ferritin IRON PROFILE W/ IBC Routine 08/17/2024 1 2:51 PM DAY HABILITATION SUPERVISOR Elevated ferritin from Last 3 Months Results * eGFR (08/17/2024 12:51 PM DAY HABILITATION SUPERVISOR) eGFR >90 >=60 mL/min/1. 73 m2 Comment: [...] was last reviewed 2021. Testing performed by: [address] [address] Blood 08/17/2024 12:5 1 PM DAY HABILITATION SUPERVISOR 08/17/2024 12:53 PM DAY HABILITATION SUPERVISOR Rosalia Diaz BOX CAR LOADER LAB BLOOD ORDERABLES Final Result [facility] [address] [facility] [place] [address] * (ABNORMAL) Differential, auto (08/17/2024 12:51 PM DAY HABILITATION SUPERVISOR) Neutrophil abs 8.1(H) 1.5 - 6.5 K/cumm Comment:Testing performed by : [address] [address] Imm gran abs 0.0 0.0 - 0.1 K/cumm YENI Comment:Testing performed by : [address] [address] Lymphocyte abs 1.5 0.8 - 3.3 K/cumm YENI Comment:Testing performed by : [address] [address] Monocyte abs 1.1(H) 0.2 - 0.8 K/cumm YENI Comment:Testing performed by : [address] [address] Eosinophil abs 0.2 0.0 - 0.5 K/cumm YENI Comment:Testing performed by : [address] [address] Basophil abs 0.1 0.0 - 0.1 K/cumm YENI Comment:Testing performed by : [address] [address] Neutrophil pct 74.2 % YENI Comment: Interpretive Data Percent cell count reference ranges are not reported, since discordance with absolute values may lead to misinterpretation of CBC data. Current Interpretive Data was last revised on 2018. Testing performed by: [address] [address] Imm gran pct 0.3 % [facility] Comment: Interpretive Data Percent cell count reference ranges are not reported, since discordance with absolute values may lead to misinterpretation of CBC data. Current Interpretive Data was last revised on 2018. Testing performed by: [address] [address] Lymphocyte pct 13.5 % [facility] Comment: Interpretive Data Percent cell count reference ranges are not reported, since discordance with absolute values may lead to misinterpretation of CBC data. Current Interpretive Data was last revised on 2018. Testing performed by: [address] [address] Monocyte pct 9.9 % [facility] Comment: Interpretive Data Percent cell count reference ranges are not reported, since discordance with absolute values may lead to misinterpretation of CBC data. Current Interpretive Data was last revised on 2018. Testing performed by: [address] [address] Eosinophil pct 1.6 % [facility] Comment: Interpretive Data Percent cell count reference ranges are not reported, since discordance with absolute values may lead to misinterpretation of CBC data. Current Interpretive Data was last revised on 2018. Testing performed by: [address] [address] Basophil pct 0.5 % [facility] Comment: Interpretive Data Percent cell count reference ranges are not reported, since discordance with absolute values may lead to misinterpretation of CBC data. Current Interpretive Data was last revised on 2018. Testing performed by: [address] [address] Blood 08/17/2024 12:5 1 PM DAY HABILITATION SUPERVISOR 08/17/2024 12:53 PM DAY HABILITATION SUPERVISOR us Rosalia Diaz BOX CAR LOADER LAB BLOOD ORDERABLES Final Result Y[facility]I [address] [facility] Department of Laboratories [place], [place] [id number] * (ABNORMAL) Iron profile w/ IBC (08/17/2024 12:51 PM DAY HABILITATION SUPERVISOR) Pathologist [facility] Iron 147(H) 35 - 145 mcg/dL Comment:Testing performed by : [address] [address] TIBC 260 250 - 400 mcg/dL YENI BELCHER Comment:Testing performed by : [address] [address] Transferrin saturation 57(H) 20 - 50 % YENI BELCHER Comment:Testing performed by : [address] [address] Blood 08/17/2024 12:5 1 PM DAY HABILITATION SUPERVISOR 08/17/2024 1:43 PM DAY HABILITATION SUPERVISOR us Rosalia Diaz BOX CAR LOADER LAB BLOOD ORDERABLES Final Result Performing Organization Address City/State/[facility] Co de Phone Number YENI [address] [facility] [place] [address] * (ABNORMAL) CBC with auto differential (08/17/2024 12:51 PM DAY HABILITATION SUPERVISOR) [facility] WBC 11.0(H) 3.8 - 9.9 K/cumm Comment:Testing performed by : [address] [address] Hgb 14.4 11.9 - 15.5 g/dL YENI BELCHER Comment:Testing performed by : [address] [address] Hct 44.0 35.6 - 45.5 % YENI BELCHER Comment:Testing performed by : [address] [address] Plt 416(H) 150 - 400 K/cumm YENI BELCHER Comment:Testing performed by : [address] [address] MPV 10.1 9.1 - 12.3 fL YENI BELCHER Comment:Testing performed by : [address] [address] RBC 4.83 3.90 - 5.20 M/cumm YENI BELCHER Comment:Testing performed by : [facility], [address] [place] [address]., [address] MCV 91.1 81.3 - 96.4 fL YENI BELCHER Comment:Testing performed by : [address] [address] MCH 29.8 27.1 - 33.3 pg YENI BELCHER Comment:Testing performed by : [address] [address] MCHC 32.7 32.3 - 35.7 g/dL YENI BELCHER Comment:Testing performed by : [address] [address] RDW CV 12.7 11.1 - 14.9 % YENI Comment:Testing performed by : [address], [address] RDW SD 42.5 35.7 - 48.1 fL YENI Comment:Testing performed by : [address] [address] NRBC abs 0.00 0.00 - 0.01 K/cumm YENI BELCHER Comment:Testing performed by : [address], [address] Blood 08/17/2024 12:5 1 PM DAY HABILITATION SUPERVISOR 08/17/2024 12:53 PM DAY HABILITATION SUPERVISOR Rosalia Diaz NP LAB BLOOD ORDERABLES Final Result [facility] [address] [facility] of [facility] [place], [place] [id number] * Ferritin (08/17/2024 12:51 PM DAY HABILITATION SUPERVISOR) Ferritin 73 15 - 150 ng/mL Comment:Testing performed by : [address] [address] Blood 08/17/2024 12:5 1 PM DAY HABILITATION SUPERVISOR 08/17/2024 1:43 PM DAY HABILITATION SUPERVISOR Rosalia Diaz NP LAB BLOOD ORDERABLES Final Result [facility] [address] [facility] [place] [address] * (ABNORMAL) Comprehensive metabolic panel (08/17/2024 12:51 PM DAY HABILITATION SUPERVISOR) Sodium 137 135 - 145 mmol/L Comment:Testing performed by : [address] [address] Potassium, pl 4.7 3.3 - 4.9 mmol/L YENI Comment:Testing performed by : [address], [place]., [address] Chloride 100 97 - 110 mmol/L YENI Comment:Testing performed by : [address] [address] CO2 28 22 - 32 mmol/L YENI Comment:Testing performed by : [address] [address] Anion gap 9 2 - 15 mmol/L YENI Comment:Testing performed by : [address] [address] BUN 10 6 - 25 mg/dL YENI Comment:Testing performed by : [address] [address] Creatinine 0.70 0.60 - 1.10 mg/dL YENI Comment:Testing performed by : [address] [address] Glucose 96 70 - 199 mg/dL YENI [...] was last revised 2022. Testing performed by: [address] [address] Calcium 8.4(L) 8.5 - 10.3 mg/dL YENI Comment:Testing performed by : [address] [address] Bilirubin, total 0.5 0.1 - 1.2 mg/dL YENI Comment:Testing performed by : [address] [address] Protein, pl 6.6 6.5 - 8.5 g/dL YENI Comment:Testing performed by : [address] [address] Albumin 3.9 3.5 - 5.0 g/dL YENI Comment:Testing performed by : [address] [address] Alk phos 54 40 - 130 Units/L YENI Comment:Testing performed by : [address] [address] ALT 14 7 - 45 Units/L YENI Comment:Testing performed by : [address] [address] AST 20 10 - 45 Units/L YENI Comment:Testing performed by : [address] [address] Blood 08/17/2024 12:5 1 PM DAY HABILITATION SUPERVISOR 08/17/2024 12:53 PM DAY HABILITATION SUPERVISOR Rosalia Diaz BOX CAR LOADER LAB BLOOD ORDERABLES Final Result Performing Organization Address City/State/[facility] Co de Phone Number [facility] [address] [facility] [place] [address] from Last 3 Months Insurance [facility] CMR [facility] CMR Care Teams Fiber Design Engineer Relationship Specialty Start Date End Date Artemio Murdock MD [address] [place] [address] PCP - General Family Medicine 05/14/22 Mitch Fernando MD [address] [place] [address] Rheumatology 08/26/17 Artemio Murdock MD [address] [place] [address] Referring Physician Family Medicine 04/14/22
--- OUTSIDE RECORDS SUMMARY | 2024-11-16 10:33 | XMS_ITS | Referral Summary ---
Author Organization [facility] Address [address] [place] [address] Care Team Providers Care Deicer Finisher Name Role Phone Kaity Cullen MD Primary Care Provider + Source Comments [facility],non-owned Affiliates and Associated Physician Practices is amultiple site organization consisting of ambulatory clinics and hospital sitesin [place], [place]. This disclosure is being madepursuant to the Care Everywhere program and may not contain all information available regarding this patient. Last updated 18.[facility] Social History Tobacco Use Types Packs/Day Years Used Date Smoking Tobacco: Never Assessed Sex and Gender Information Value Date Recorded Sex Assigned at Not on file Gender Identity Not on file Sexual Orientation Not on file Plan of Treatment Not on file Care Teams Deicer Finisher Relationship Specialty Start Date End Date Kaity Cullen MD [address] [place] [address] PCP - General Family Medicine 07/01/17
--- OUTSIDE RECORDS SUMMARY | 2024-11-16 10:33 | XMS_ITS | Encounter Summary ---
Author Organization [facility] Address [address] [place] [address] Care Team Providers Care Auto Haulaway Driver Name Role Phone Doug Ojeda DO Primary Care Provider Unav ailable Encounter Details Date Type Department Care Team (Latest Contact Info) Description 07/12/2000 Outpatient [facility], Bharath Urrutia MD [address] [facility] [address] [place] [address] Abdominal pain, unspecified site (Primary Dx) Social History Tobacco Use Types Packs/Day Years Used Date Smoking Tobacco: Never Assessed Comments Unknown Sex and Gender Information Value Date Recorded Sex Assigned at Not on file Legal Sex Female 5:27 AM FOOD AND NUTRITION SUPERVISOR Gender Identity Not on file Sexual Orientation Not on file documented as of this encounter Plan of Treatment Not on file documented as of this encounter Visit Diagnoses Diagnosis Abdominal pain, unspecified site- Primary documented in this encounter Care Teams Auto Haulaway Driver Relationship Specialty Start Date End Date Doug Ojeda DO NO ADDRESS ON FILE PCP - General 01/24/01 documented as of this encounter
--- OUTSIDE RECORDS SUMMARY | 2024-11-16 10:33 | XMS_ITS | Clinical Summary ---
Author Organization [facility] Address [address] [facility] [facility] Attn: Epic Prelude ADT RIKKI JERRY [address] Care Team Providers Care Bridge Club Manager Name Role Phone Doug Ojeda DO Primary Care Provider Unav ailable Social History Tobacco Use Types Packs/Day Years Used Date Smoking Tobacco: Never Assessed Comments Unknown Sex and Gender Information Value Date Recorded Sex Assigned at Not on file Legal Sex Female 5:27 AM KIDNEY PULLER Gender Identity Not on file Sexual Orientation Not on file Plan of Treatment Health Maintenance Due Date Last Done Comments DTAP/TDAP/TD VACCINES (1 - Tdap) 1991 HEPATITIS B VACCINES (1 of 3 - 19+ 3-dose series) 1991 CERVICAL CANCER SCREENING 2002 BREAST CANCER SCREENING 2012 COLORECTAL SCREENING 2017 Colorectal Cancer Screening 2017 FIT-DNA Q 3 years 2017 FIT/FOBT Q 1 year 2017 Flex Sig/CT Colonography Q 5 years 2017 ZOSTER VACCINE (1 of 2) 2022 INFLUENZA VACCINE (#1) 2024 PNEUMOCOCCAL VACCINE 0-64 YEARS Aged Out No longer eligible based on patient's age to complete this topic Care Teams Bridge Club Manager Relationship Specialty Start Date End Date Doug Ojeda DO NO ADDRESS ON FILE PCP - General 01/24/01
--- OUTSIDE RECORDS SUMMARY | 2024-11-16 10:33 | XMS_ITS | Clinical Summary ---
Author Organization [facility] Address [address] [place] [address] Care Team Providers Care Metal Fence Erector Name Role Phone Unavailable Primary Care Provider Unavailabl e Social History Tobacco Use Types Packs/Day Years Used Date Smoking Tobacco: Never Assessed Comments Unknown Sex and Gender Information Value Date Recorded Sex Assigned at Not on file Legal Sex Female 10:22 PM GARAGE MANAGER Gender Identity Not on file Sexual Orientation Not on file Plan of Treatment Health Maintenance Due Date Last Done Comments Cervical Cancer Screening Pa p Smear (Age 30 to 64) Every 3 Years 1972 Colorectal Cancer Screening Colonoscopy (10 Years) 1972 Annual Physical 1975 Hepatitis C 1990 DTaP, Tdap and Td Vaccines ( 1 - Tdap) 1991 Hepatitis B Vaccines (1 of 3 - 19+ 3-dose series) 1991 Cervical Cancer Screening Pa p with HPV Testing (Age 30 to 64) Every 5 Years 2002 Cervical Cancer Screening with HPV 2002 Mammogram Screening 2012 Zoster Vaccines (1 of 2) 2022 COVID-19 Vaccine (2023-2 5 season) 2024 Influenza Adult (#1) 2024 Meningococcal B Vaccine Aged Out No l onger eligible based on patient's age to complete this topic Meningococcal Vaccine Aged Out No aaliyah janine eligible based on patient's age to complete this topic Pneumococcal Vaccine: Pediat rics (0 to 5 Years) and At-Risk Patients (6 to 64 Years) Aged Out No longer eligible b ased on patient's age to complete this topic RSV Immunizations Under 20 Months Aged Out No longer eligible based on patient's age to complete this topic
--- OUTSIDE RECORDS SUMMARY | 2024-11-16 10:33 | XMS_ITS | Encounter Summary ---
Author Organization [facility] Address [address] [place] [address] Care Team Providers Care Transferrer Name Role Phone Doug Ojeda DO Primary Care Provider Unav ailable Encounter Details Date Type Department Care Team (Late st Contact Info) Description 07/23/2001 Outpatient Historical [facility] Primary Care - [address] [place] [id number] Doug Ojeda DO NO ADDRESS ON FILE Social History Tobacco Use Types Packs/Day Years Used Date Smoking Tobacco: Never Assessed Comments Unknown Sex and Gender Information Value Date Recorded Sex Assigned at Not on file Legal Sex Female 5:27 AM RESPIRATORY ASSISTANT Gender Identity Not on file Sexual Orientation Not on file documented as of this encounter Plan of Treatment Not on file documented as of this encounter Visit Diagnoses Not on filedocumented in this encounter Care Teams Transferrer Relationship Specialty Start Date End Date Doug Ojeda DO NO ADDRESS ON FILE PCP - General 01/24/01 documented as of this encounter
--- OUTSIDE RECORDS SUMMARY | 2024-11-16 10:33 | XMS_ITS | Encounter Summary ---
Author Organization [employer] Address [address] [place] [address] Care Team Providers Care Administrative Tech Name Role Phone Doug Ojeda DO Primary Care Provider Unav ailable Encounter Details Date Type Department Care Team (Latest Contact Info) Description 01/23/2001 Outpatient Historical [facility] Bharath Albert MD [address] [facility] [address] [place] [address] Supervision of other normal (Primary Dx) Social History Tobacco Use Types Packs/Day Years Used Date Smoking Tobacco: Never Assessed Comments Unknown Sex and Gender Information Value Date Recorded Sex Assigned at Not on file Legal Sex Female 5:27 AM COLOR STRAINER Gender Identity Not on file Sexual Orientation Not on file documented as of this encounter Plan of Treatment Not on file documented as of this encounter Visit Diagnoses Diagnosis Supervision of other normal - Primary documented in this encounter Care Teams Administrative Tech Relationship Specialty Start Date End Date Doug Ojeda DO NO ADDRESS ON FILE PCP - General 01/24/01 documented as of this encounter
--- OUTSIDE RECORDS SUMMARY | 2024-11-16 10:33 | XMS_ITS | Encounter Summary ---
Author Organization [facility] Address [address] [place] [address] Care Team Providers Care Dietary Assistant Name Role Phone Doug Ojeda DO Primary Care Provider Unav ailable Encounter Details Date Type Department Care Team (Late st Contact Info) Description 02/08/2004 Outpatient Historical [facility] Primary Care - [address] [place] [phone] Angela Jin MD NO ADDRESS ON FILE Social History Tobacco Use Types Packs/Day Years Used Date Smoking Tobacco: Never Assessed Comments Unknown Sex and Gender Information Value Date Recorded Sex Assigned at Not on file Legal Sex Female 5:27 AM ESL INSTRUCTOR Gender Identity Not on file Sexual Orientation Not on file documented as of this encounter Plan of Treatment Not on file documented as of this encounter Visit Diagnoses Not on filedocumented in this encounter Care Teams Dietary Assistant Relationship Specialty Start Date End Date Doug Ojeda DO NO ADDRESS ON FILE PCP - General 01/24/01 documented as of this encounter
--- OUTSIDE RECORDS SUMMARY | 2024-11-16 10:33 | XMS_ITS | Encounter Summary ---
Author Organization [facility] Address [address] [place] [address] Care Team Providers Care Senior Operations Manager Name Role Phone Doug Ojeda DO Primary Care Provider Unav ailable Encounter Details Date Type Department Care Team (Latest Contact Info) Description 01/24/2001 Inpatient Historical HIS PATIENT IN A BED [facility], Bharath Urrutia MD [address] [facility] [address] [place] [address] Intrauterine affecting management of mother, delivered (Primary Dx) Social History Tobacco Use Types Packs/Day Years Used Date Smoking Tobacco: Never Assessed Comments Unknown Sex and Gender Information Value Date Recorded Sex Assigned at Not on file Legal Sex Female 5:27 AM PROFESSOR OF NURSING Gender Identity Not on file Sexual Orientation Not on file documented as of this encounter Plan of Treatment Not on file documented as of this encounter Visit Diagnoses Diagnosis Intrauterine affecting management of mother, delivered- Primary documented in this encounter Care Teams Senior Operations Manager Relationship Specialty Start Date End Date Doug Ojeda DO NO ADDRESS ON FILE PCP - General 01/24/01 documented as of this encounter
--- OUTSIDE RECORDS SUMMARY | 2024-11-16 10:33 | XMS_ITS | Patient Health Summary ---
Author Organization [facility] Address [address] [place] [address] Care Team Providers Care Sales Associate Key Holder Name Role Phone Kaity Cullen MD Primary Care Provider + Note from [facility],non-owned Affiliates and Associated Physician Practices is amultiple site organization consisting of ambulatory clinics and hospital sitesin [place], [place], [place] and [place]. This disclosure is being madepursuant to the Care Everywhere program and may not contain all information available regarding this patient. Last updated 18.[facility] Social History Tobacco Use Types Packs/Day Years Used Date Smoking Tobacco: Never Assessed Sex and Gender Information Value Date Recorded Sex Assigned at Not on file Gender Identity Not on file Sexual Orientation Not on file Procedures * XR CHEST 2VW(Performed 07/01/2017) Performed for Shortness of breath * GROSS + MICRO EXAM(Performed 08/01/1999) * GROSS + MICRO EXAM(Performed 03/27/1999) Results * XR CHEST PA AND LATERAL (07/01/2017 4:23 PM CDT) Anatomical Region Laterality Modality Chest Radiographic Shaniqua ging 07/01/2017 3:50 PM CDT Impressions 07/01/2017 3:51 PM CDT Clear lungs. Narrative 07/01/2017 3:51 PM CDT Chest x-ray 2 views. HISTORY: Shortness of breath. 2 views of the chest show normal heart size with normal vessels. Lungs are clear. Procedure Note Hector Fung MD - 07/01/2017 Chest x-ray 2 views. HISTORY: Shortness of breath. 2 views of the chest show normal heart size with normal vessels. Lungs are clear. IMPRESSION Clear lungs. Mitch Fernando MD DIAGNOSTIC IMAGING O RDERABLES * GROSS + MICRO EXAM (08/01/1999 1:51 PM DRUM BUILDER) Only the most recent of2 resultswithin the time period is included. Result CASE NUMBER [id number] Comment: ORDERING PHYSICIAN PRAVIN FIELDS SPECIMEN TYPE Gastric Biopsy Surgeon PRAVIN FIELDS M.D. Gross Exam MERE LEONARDO Gross Report INDICATION FOR PROCEDURE DYSPEPSIA OPERATION EGD WITH BIOPSY SPECIMEN GASTRIC, R/O GASTRITIS GROSS THE SPECIMEN IS RECEIVED IN A CONTAINER LABELED WITH THE PATIENT'S NAME ROSALIA MCKEON AND IDENTIFIED GASTRIC . THE SPECIMEN CONSISTS OF THREE CORDERO-VAUGHAN SOFT PIECES OF TISSUE WHICH RANGE IN SIZE FROM 1 X 1 X1 MM. TO 3 X 2 X 2 MM. THE SPECIMEN IS ALL SUBMITTED IN A SINGLE CASSETTE. MP/KA MICROSCOPIC EXAM MICROSCOPIC EXAMINATION THE GASTRIC BIOPSY SHOWS A MODERATE CHRONIC GASTRITIS AND FUNDAL AND ANTRAL TYPE MUCOSA. INTERSPERSED SMALL LYMPHOID AGGREGATES WELL A DIFFUSE INFILTRATION OF THE STROMA BY THE INFLAMMATORY CELLS ARE EVIDENT. NO DISTINCT FOLLICLES HOWEVER ARE SEEN. NO INTESTINAL METAPLASIA OR DYSPLASIA IS IDENTIFIED. H.PYLORI ORGANISMS ARE NOT FOUND, BUT CLOTEST OR SEROLOGIC CORRELATION ARE RECOMMENDED. IN ONE OF THE FRAGMENTS, THE LYMPHOID/INFLAMMATORY INFILTRATE IS DENSE AND EXPANSILE AND SOMEWHAT CONCERNING. IF LYMPHOMA SHOULD BE IN THE CLINICAL DIFFERENTIAL A RE-BIOPSY TO OBTAIN FRESH TISSUE FOR IMMUNOPHENOTYPING MAY BE CONSIDERED, SHOULD TREATMENT OF THE GASTRITIS APPEAR REFRACTORy. [facility] DIAGNOSIS DIAGNOSIS [1] GASTRIC ENDOSCOPIC BIOPSY - CHRONIC GASTRITIS, MODERATE (SEE MICROSCOPIC DESCRIPTION) - NO INTESTINAL METAPLASIA OR DYSPLASIA IDENTIFIED - NO H. PYLORI ORGANISMS SEEN. [facility] [id number] Released By EMILIO VILLEGAS MISCELLANEOUS SAMPLES / Unknown 08/01/1999 1:51 PM DRUM BUILDER 08/01/1999 1:52 PM DRUM BUILDER Historical Provider LAB - PATHOLOGY/C YTOLOGY ORDERABLES Care Teams Sales Associate Key Holder Relationship Specialty Start Date End Date Kaity Cullen MD [address] [place] [phone] PCP - General Family Medicine 07/01/17
--- OUTSIDE RECORDS SUMMARY | 2024-11-16 10:33 | XMS_ITS | Encounter Summary ---
Author Organization [facility] Address [address] [place] [address] Care Team Providers Care Linotype Mechanic Name Role Phone Doug Ojeda DO Primary Care Provider Unav ailable Encounter Details Date Type Department Care Team (Late st Contact Info) Description 09/08/1999 Outpatient Historical [facility] [place] Primary Care - [address] [place] [phone] Price Hamilton DO Social History Tobacco Use Types Packs/Day Years Used Date Smoking Tobacco: Never Assessed Comments Unknown Sex and Gender Information Value Date Recorded Sex Assigned at Not on file Legal Sex Female 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
--- OUTSIDE RECORDS SUMMARY | 2024-11-16 10:33 | XMS_ITS | Encounter Summary ---
Author Organization [facility] Address 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
--- OUTSIDE RECORDS SUMMARY | 2024-11-16 10:33 | XMS_ITS | Encounter Summary ---
Author Organization [facility] Address [address] [place] [address] Care Team Providers Care Naval Special Warfare Medic Name Role Phone Doug Ojeda DO Primary Care Provider Unav ailable Encounter Details Date Type Department Care Team (Latest Contact Info) Description 12/22/2000 Outpatient [facility] Bharath Albert MD [address] [facility] [address] [place] [phone] Supervision of other normal (Primary Dx) Social History Tobacco Use Types Packs/Day Years Used Date Smoking Tobacco: Never Assessed Comments Unknown Sex and Gender Information Value Date Recorded Sex Assigned at Not on file Legal Sex Female 5:27 AM MULTIMEDIA SERVICES COORDINATOR Gender Identity Not on file Sexual Orientation Not on file documented as of this encounter Plan of Treatment Not on file documented as of this encounter Visit Diagnoses Diagnosis Supervision of other normal - Primary documented in this encounter Care Teams [employer] Special Warfare Medic Relationship Specialty Start Date End Date Doug Ojeda DO NO ADDRESS ON FILE PCP - General 01/24/01 documented as of this encounter
--- OUTSIDE RECORDS SUMMARY | 2024-11-16 10:33 | XMS_ITS | Encounter Summary ---
Author Organization [facility] Address 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
--- OUTSIDE RECORDS SUMMARY | 2024-11-16 10:33 | XMS_ITS | Encounter Summary ---
Author Organization [facility] Address [address] [place] [address] Care Team Providers Care Supervisor Livestock Yard Name Role Phone Doug Ojeda DO Primary Care Provider Unav ailable Encounter Details Date Type Department Care Team (Late st Contact Info) Description 08/12/1998 Outpatient Historical [facility] Primary Care - [address] [place] [phone] Price Hamilton DO Social History Tobacco Use Types Packs/Day Years Used Date Smoking Tobacco: Never Assessed Comments Unknown Sex and Gender Information Value Date Recorded Sex Assigned at Not on file Legal Sex Female 5:27 AM PRODUCT APPLICATIONS SCIENTIST Gender Identity Not on file Sexual Orientation Not on file documented as of this encounter Plan of Treatment Not on file documented as of this encounter Visit Diagnoses Not on filedocumented in this encounter Care Teams Supervisor Livestock Yard Relationship Specialty Start Date End Date Doug Ojeda DO NO ADDRESS ON FILE PCP - General 01/24/01 documented as of this encounter
--- OUTSIDE RECORDS SUMMARY | 2024-11-16 10:33 | XMS_ITS | Clinical Summary ---
Author Organization [facility] Address [address] [place] [address] Care Team Providers Care Batch Maker Name Role Phone Kaity Cullen MD Primary Care Provider + Source Comments [facility],non-owned Affiliates and Associated Physician Practices is amultiple site organization consisting of ambulatory clinics and hospital sitesin [place], [place], [place]. This disclosure is being madepursuant to the Care Everywhere program and may not contain all information available regarding this patient. Last updated 18.[facility] Outsell Social History Tobacco Use Types Packs/Day Years Used Date Smoking Tobacco: Never Assessed Sex and Gender Information Value Date Recorded Sex Assigned at Not on file Gender Identity Not on file Sexual Orientation Not on file Plan of Treatment Health Maintenance Due Date Last Done Comments COLOGUARD (AGES 45-75) - COL ON CA SCREENING 1972 COLON MONITORING 1972 COLONOSCOPY - COLON CA SCREENING 1972 CT COLONOGRAPHY - COLON CA SCREENING 1972 Colorectal Cancer Screening 1972 FIT - COLON CA SCREENING 1972 FLEX SIG - COLON CA SCREENING 1972 LIPID TESTING 1972 MAMMOGRAM 1972 PAP SMEAR 1972 HIV SCREENING 1987 HEPATITIS C SCREENING 03/11/1990 DTAP/TDAP/TD VACCINES (1 - Tdap) 1991 HEPATITIS B VACCINE (1 of 3 - 19+ 3-dose series) 1991 PNEUMOCOCCAL VACCINE 50+ (1 of 1 - PCV) 2022 ZOSTER VACCINE (1 of 2) 2022 COVID-19 VACCINE (2023-2 5 season) 2024 INFLUENZA VACCINE (#1) 2024 DEPRESSION SCREENING 09/27/2024 HIB VACCINE Aged Out No longer eligi ble based on patient's age to complete this topic HPV VACCINE Aged Out No longer eligi ble based on patient's age to complete this topic MENINGOCOCCAL (Group B) VACCINE Aged Out No longer eligible based on patient's age to complete this topic MENINGOCOCCAL VACCINE Aged Out No aaliyah janine eligible based on patient's age to complete this topic PNEUMOCOCCAL VACCINE Aged Out No long er eligible based on patient's age to complete this topic Care Teams Batch Maker Relationship Specialty Start Date End Date Kaity Cullen MD [address] [facility] [facility] [address] [place] [address] PCP - General Family Medicine 07/01/17
--- OUTSIDE RECORDS SUMMARY | 2024-11-16 10:33 | XMS_ITS | Encounter Summary ---
Author Organization [facility] Address [address] [place] [address] Care Team Providers Care Seamless Tube Drawer Name Role Phone Doug Ojeda DO Primary Care Provider Unav ailable Encounter Details Date Type Department Care Team (Late st Contact Info) Description 04/05/2001 Outpatient Historical [facility] Primary Care - [address] [place] [phone] Doug Ojeda DO NO ADDRESS ON FILE Social History Tobacco Use Types Packs/Day Years Used Date Smoking Tobacco: Never Assessed Comments Unknown Sex and Gender Information Value Date Recorded Sex Assigned at Not on file Legal Sex Female 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
== END 2024-11-16 10:16 | disposition home or self-care (01) ==
PROVIDERS: Visit Provider Nurse Practitioner
DX: Z12.31 Encounter for screening mammogram for malignant neoplasm of breast (principal)
CPT/HCPCS: 77063; 77067

== ENCOUNTER 2025-05-21 09:48 | Outpatient (CLI) | payer OTHER, SELFPAY ==
--- NOTE | ~2025-05-21 | XR_ITS ---
RIGHT XR knee RT 3V Indication: M25.561 - Pain in right knee Comparison: None Technique: 3 view. Findings: No acute fracture or malalignment. No significant degenerative changes. Soft tissues are unremarkable. Impression: No acute fracture or malalignment. Reviewed, dictated and finalized at location A. Impression: No acute fracture or malalignment.
--- NOTE | ~2025-05-21 | XR_ITS ---
XR knee LT 3V 05/21/2025 10:08 Indication: Left knee pain Procedure: 3 views left knee Comparison: 12/17/2017 Findings: There is patellofemoral compartment osteoarthritis. No acute fracture, subluxation or dislocation. No significant joint effusion. No foreign bodies. Impression: 1: Moderate patellofemoral compartment osteoarthritis. Reviewed, dictated and finalized at location O. Impression: 1: Moderate patellofemoral compartment osteoarthritis.
== END 2025-05-21 09:49 | disposition home or self-care (01) ==
PROVIDERS: PCP Family Medicine; Visit Provider Physician Assistant Medical
DX: M25.561 Pain in right knee (principal); M25.562 Pain in left knee
CPT/HCPCS: 73562